=== PATIENT | female | born 1950 | race Caucasian/White ===

== ENCOUNTER → 2018-06-07 12:42 | Outpatient (CLI) | payer MEDICARE, SELFPAY ==
--- NOTE | 2018-06-07 13:21 | ECHOD_ITS ---
Reason For Study: THORACIC AORTA ANEURYSM Procedure This was a 2D Doppler, Color Flow transthoracic echocardiogram. Contrast injection was performed. Dr Valencia's office was notified of elevated BP. Exam performed in department. Left Ventricle Normal LV size. Mild concentric left ventricular hypertrophy. Left ventricular systolic function is normal. The estimated ejection fraction is 55 %. No regional wall motion abnormalities noted. Right Ventricle Normal RV size. Normal systolic function. Atria The left atrium is mildly enlarged. Normal right atrium. Mitral Valve Normal mitral valve. Tricuspid Valve Normal tricuspid valve. Mild (1+) tricuspid valve insufficiency. Pulmonary artery systolic pressure is 30 mmHg. Pulmonic Valve Normal pulmonic valve. Great Vessels Mild to moderately dilated aortic root. The pulmonary artery is normal size. Normal inferior vena cava. Pericardium/Pleural No pericardial effusion. Medication 22 gauge I.V. with prn adaptor inserted into right arm. Diluted definity 3ml given slow IV push to enhance endocardial definition. MMode/2D Measurements & Calculations LVIDd: 4.7 cm IVSd: 1.3 cm Ao root diam: 4.0 cm LVIDs: 2.9 cm LVPWd: 1.2 cm RVDd: 3.4 cm FS: 37.0 % LAV(MOD-bp): 91.7 ml EDV(MOD-sp4): 117.1 ml EDV(MOD-sp2): 121.9 ml LAV(MOD-bp) Indexed: 41.6 ml/m2 ESV(MOD-sp4): 42.2 ml EF(MOD-sp2): 50.3 % LAV(MOD-sp2): 110.4 ml EF(MOD-sp4): 63.9 % LAV(MOD-sp4): 72.3 ml SV(MOD-sp4): 74.9 ml SV(MOD-sp2): 61.4 ml LA A4 area: 24.4 cm2 RA A4 area: 20.8 cm2 Time Measurements MV dec time: 0.24 sec Doppler Measurements & Calculations MV E max chuckie: 68.3 cm/sec Lat Peak E' Chuckie: 9.7 cm/sec Med Peak E' Chuckie: 5.9 cm/sec MV A max chuckie: 87.9 cm/sec E/E' lat: 7.0 E/E' med: 11.6 MV E/A: 0.78 Ao V2 max: 102.8 cm/sec LV V1 max: 88.9 cm/sec PA V2 max: 104.5 cm/sec Ao max P.2 mmHg LV V1 max P.2 mmHg PI end-d chuckie: 92.0 cm/sec TR max chuckie: 258.7 cm/sec TR max P.8 mmHg Interpretation Summary Normal LV size. Mild concentric left ventricular hypertrophy. Left ventricular systolic function is normal. The estimated ejection fraction is 55 %. Mild to moderately dilated aortic root. Contrast injection was performed. Ordering Physician: JEREMY HARPER Referring Physician: KIM VALENCIA Performed By: Blanca Casas RDCS, RVT
== END ==
PROVIDERS: Family Provider Family Medicine; PCP Family Medicine; Visit Provider Surgery Vascular Surgery
DX: I71.2 Thoracic aortic aneurysm, without rupture (principal)
CPT/HCPCS: 93306; Q9957; A4216; C8929

== ENCOUNTER → 2018-06-10 10:59 | Outpatient (CLI) | payer MEDICARE, SELFPAY ==
[2018-06-10 12:47] LABS: Anion Gap 8 (5-15); BUN 17 mg/dL (7-18); BUN/Creat Ratio 19.8 RATIO (10-20); Calcium,Total 8.9 mg/dL (8.5-10.1); Chloride 105 mmol/L (98-107); Cholesterol 161 mg/dL (200); Creatinine, Serum 0.86 mg/dL (0.55-1.02); EST Glomerular Filtration Rate 70 mL/min (>60); Est Glom Filt Rate - Afr Amer 84 mL/min (>60); Glucose 80 mg/dL (74-106); High Density Lipoprotein 49 mg/dL; Potassium 3.4 mmol/L (3.5-5.1); Sodium Level 142 mmol/L (136-145); Triglycerides 152 mg/dL; Very Low Density Lipoprotein 30 mg/dL (5-40)
== END ==
PROVIDERS: Family Provider Family Medicine; PCP Family Medicine; Visit Provider Family Medicine
DX: I10 Essential (primary) hypertension (principal); E66.01 Morbid (severe) obesity due to excess calories; Z68.41 Body mass index [BMI] 40.0-44.9, adult
CPT/HCPCS: 36415; 80048; 80061; 84443